=== PATIENT | female | born 1975 | race Caucasian/White ===

== ENCOUNTER 2017-12-30 05:45 | Day surgery (SDC) | payer OTHER ==
[~2017-12-30] VITALS: Ht 160 cm; Wt 75.9 kg
[2017-12-30] MEDS ORDERED: SODIUM CHLORIDE 0.9% 1,000 ML IV ONE ×5 (06:00→11:34)
[2017-12-30] MEDS ORDERED: LORazepam 2 MG/ML VIAL IVP PRN ×2 (06:00→07:00)
[2017-12-30 06:50] LABS: BASOPHILS % (AUTO) 0.7 % (0.0-2.0); EOSINOPHILS % (AUTO) 1.4 % (1.0-6.0); HEMATOCRIT 36.2 % (36-46); HEMOGLOBIN 12.6 g/dL (12.0-16.0); LYMPHOCYTES # (AUTO) 0.6 K/uL (1.0-4.8); LYMPHOCYTES % (AUTO) 12.1 % (22.0-44.0); MEAN CORPUSCULAR HEMOGLOBIN 32.4 pg (26.0-34.0); MEAN CORPUSCULAR HGB CONC 34.7 G/dL (31.0-37.0); MEAN CORPUSCULAR VOLUME 93 fL (80-100); MONOCYTES # (AUTO) 0.5 K/uL (0.1-1.0); MONOCYTES % (AUTO) 10.8 % (2.0-9.0); NEUTROPHILS # (AUTO) 3.4 K/uL (1.8-7.7); PLATELET COUNT (AUTO) 234 K/uL (150-450); RED BLOOD CELL COUNT(AUTO) 3.88 MIL/uL (4.00-5.20); RED CELL DISTRIBUTION WIDTH 13.3 % (11.5-14.5)
[2017-12-30 06:59] LABS: ANION GAP 7 mmol/L (8-16); CALCIUM, TOTAL 9.6 mg/dL (8.8-10.5); CARBON DIOXIDE 27 mmol/L (22-29); CHLORIDE 105 mmol/L (98-107); CREATININE 0.77 mg/dL (0.60-1.30); GLOMERULAR FILTR. RATE CALC > 60 mL/min (>60); GLUCOSE,RANDOM 98 mg/dL (70-110); POTASSIUM 4.3 mmol/L (3.5-5.1); SODIUM SERUM 139 mmol/L (136-145); UREA NITROGEN, BLOOD 11 mg/dL (7-18)
[2017-12-30] MEDS ORDERED: GELATIN SPONGE,ABSORBABLE 12-7 MM TP ONE (06:59)
[2017-12-30] MEDS ORDERED: HEPARIN SODIUM 1000 UNITS/NS 500 ML ONE (06:59)
[2017-12-30] MEDS ORDERED: SODIUM BICARBONATE 50 MEQ/50 ML VIAL ONE (07:00)
[2017-12-30] MEDS ORDERED: HEPARIN SODIUM,PORCINE 1,000 UNITS/ML 10 ML VIAL ONE (07:00)
[2017-12-30] MEDS ORDERED: LIDOCAINE HCL 1%/EPI 1:200,000/PF 10 ML VIAL ONE (07:00)
[2017-12-30] MEDS ORDERED: LIDOCAINE HCL/PF 1% 30 ML VIAL ONE (07:00)
[2017-12-30] MEDS ORDERED: CAPE500 PO (07:06)
[2017-12-30] MEDS ORDERED: OXYC-38 PO (07:06)
[2017-12-30] MEDS ORDERED: VIT1TABL95 PO (07:06)
[2017-12-30] MEDS ORDERED: CELE200 PO (07:06)
[2017-12-30] MEDS ORDERED: CYCL50CA3 PO (07:06)
[2017-12-30 07:25] LABS: ALANINE AMINOTRANSFERASE 31 U/L (12-78); ALBUMIN 3.2 g/dL (3.4-5.0); ALKALINE PHOSPHATASE 95 U/L (46-116); ASPARTATE AMINOTRANSFERASE 23 U/L (15-37); BILIRUBIN,TOTAL 0.3 mg/dL (0.1-1.0); TOTAL PROTEIN, SERUM 7.8 g/dL (6.4-8.2)
[2017-12-30 07:40] LABS: PROTHROMBIN TIME 10.6 SEC (9.4-11.6)
[2017-12-30] MEDS ORDERED: SODIUM CHLORIDE 0.9% 1,000 ML IV SCH (10:58)
[2017-12-30] MEDS ORDERED: HYDROmorphone HCL 2 MG TABLET PO ONE (11:00)
[2017-12-30] MEDS ORDERED: OxyCODONE HCL/ACETAMINOPHEN 5-325 MG TABLET PO PRN ×2 (11:00)
[2017-12-30] MEDS ORDERED: HYDROmorphone 2 MG/ML SYRINGE IVP PRN (11:00)
[2017-12-30] MEDS ORDERED: HYDROmorphone 2 MG/ML SYRINGE ONE (11:01)
[2017-12-30] MEDS ORDERED: ACETAMINOPHEN 1000 MG/ISO-OSM 100 ML IV ONE (11:05)
[2017-12-30] MEDS ORDERED: HYDROmorphone 2 MG/ML SYRINGE IVP STA (11:10)
[2017-12-30] MEDS ORDERED: ACETAMINOPHEN 1000 MG/ISO-OSM 100 ML IV STA (11:10)
[2017-12-30] MEDS ORDERED: MIDAZOLAM HCL 2 MG/2 ML VIAL ONE (11:24)
[2017-12-30] MEDS ORDERED: CeFAZolin 2 GM/DEXTROSE 50 ML IV ONE (11:34)
[2017-12-30] MEDS ORDERED: KETAMINE HCL 50 MG/ML 10 ML VIAL IVP ONE (12:00)
[2017-12-30] MEDS ORDERED: ESMOLOL HCL 10 MG/ML 10 ML VIAL IVP ONE (12:00)
[2017-12-30] MEDS ORDERED: ACETYLCYSTEINE IV ONE ×2 (12:00)
[2017-12-30] MEDS ORDERED: MIDAZOLAM HCL 2 MG/2 ML VIAL IVP ONE (12:00)
[2017-12-30] MEDS ORDERED: DEXTROSE 5% IV ONE ×2 (12:00)
[2017-12-30] MEDS ORDERED: PROPOFOL 1% 20 ML VIAL IVP ONE (12:00)
[2017-12-30] MEDS ORDERED: HydrALAZINE HCL 20 MG/ML VIAL IVP ONE (12:00)
[2017-12-30] MEDS ORDERED: WATER IV ONE ×2 (12:00)
[2017-12-30] MEDS ORDERED: ONDANSETRON HCL 4 MG/2 ML VIAL ONE (15:04)
[2017-12-30] MEDS ORDERED: ONDANSETRON HCL 4 MG/2 ML VIAL IVP ONE (15:15)
== END 2017-12-30 16:25 | disposition home or self-care (01) ==
LOC: SURGERY 05:45 → EDSTATUS 07:30 → SURGERY 16:25
PROVIDERS: ATTEND Radiology Diagnostic Radiology
DX: E27.8 Other specified disorders of adrenal gland (principal); K21.9 Gastro-esophageal reflux disease without esophagitis; Z51.11 Encounter for antineoplastic chemotherapy; Z79.891 Long term (current) use of opiate analgesic; Z79.899 Other long term (current) drug therapy; Z98.890 Other specified postprocedural states; Z82.49 Family history of ischemic heart disease and other diseases of the circulatory system
CPT/HCPCS: 50593; 77013; 99152; 99153; C2618; J0131; J0132; J0360; J0690; J1170; J1644; J2250; J2405; J2704; J3490; J7030; J7060